=== PATIENT | male | born 1995 | race African-American/Black ===

== ENCOUNTER 2016-09-06 12:57 | Emergency (ER) | payer BC ==
[~2016-09-06] VITALS: Ht 175.3 cm; Wt 58.5 kg
[~2016-09-06 12:57] MED LIST: NAPROSYN500 MG PO; NORCO 5/3251 TABLET PO; VICODIN 5-3001 EACH PO
[2016-09-06] MEDS ORDERED: NAPROSYN500 MG PO (14:01)
[2016-09-06 14:21] VITALS: BP 135/80
== END 2016-09-06 14:22 | disposition home or self-care (01) ==
LOC: EME 12:57 → RME 12:57
DX: S60.222A Contusion of left hand, initial encounter (principal); W20.8XXA Other cause of strike by thrown, projected or falling object, initial encounter; F17.200 Nicotine dependence, unspecified, uncomplicated
CPT/HCPCS: 73130; 99281; 99283

== ENCOUNTER 2017-01-26 15:02 | Emergency (ER) | payer SELFPAY ==
[~2017-01-26] VITALS: Ht 177.8 cm; Wt 55.7 kg
[2017-01-26] MEDS ORDERED: MOTRIN800 MG PO (17:55)
[2017-01-26 18:50] VITALS: BP 120/81
== END 2017-01-26 18:51 | disposition home or self-care (01) ==
LOC: EME 15:02
PROC: 2W39X1Z Immobilization of Left Upper Extremity using Splint (ICD-10-PCS; principal; 2017-01-26)
DX: S59.902A Unspecified injury of left elbow, initial encounter (principal); M25.521 Pain in right elbow; W22.01XA Walked into wall, initial encounter; F17.200 Nicotine dependence, unspecified, uncomplicated
CPT/HCPCS: 73070; 73080; 99281; 99284